=== PATIENT | female | born 1990 | race Asian ===

== ENCOUNTER 2024-09-17 11:16 | Outpatient (CLI) | payer BC, SELFPAY ==
--- NOTE | ~2024-09-17 | US_ITS ---
EXAMINATION: US OB <= 14 weeks fetus DATE: 09/17/2024 11:35 INDICATION: Viability. . TECHNIQUE: Real-time transabdominal pelvic ultrasound was performed. COMPARISON: None. FINDINGS: The uterus measures 15.7 x 6.8 x 8.8 cm. There is an intrauterine gestational sac. A yolk sac is iden tified. The crown rump length measures 3.4 cm, which correlates with an estimated gestational age of 10 weeks and 2 day(s) (+/-) 6 day(s). heart motion is identified measuring 169 beats per minute (bpm) by M-mode Doppler. There is a small subchronic hematoma. The right ovary is not visuali zed. The left ovary measures 7.4 x 4.3 x 7.7 cm. There is a 5.3 cm cyst in left ovary. There is no fr ee fluid in the pelvis. IMPRESSION: 1. Single living intrauterine gestation with estimated date of delivery of 05/10/2025. 2. Small subchronic hematoma. 3. 5.3 cm cyst in left ovary, likely a follicular cyst. Pelvis ultrasound is recommended in 6-12 josesito hs. Reviewed, dictated and finalized at location A. PING SUPPORT IMPRESSION: 1. Single living intrauterine gestation with estimated date of delivery of 04/13. 2. Small subchronic hematoma. 3. 5.3 cm cyst in left ovary, likely a follicular cyst. Pelvis ultrasound is re commended in 6-12 months.
== END 2024-09-17 11:17 | disposition home or self-care (01) ==
LOC: MICIMG 11:16
PROVIDERS: PCP Obstetrics & Gynecology Gynecology; Visit Provider Obstetrics & Gynecology Gynecology
DX: O36.80X0 Pregnancy with inconclusive fetal viability, not applicable or unspecified (principal)
CPT/HCPCS: 76801

== ENCOUNTER 2024-10-22 10:20 | Outpatient (CLI) | payer BC, SELFPAY ==
--- NOTE | ~2024-10-22 | US_ITS ---
EXAMINATION: US OB follow up DATE: 10/22/2024 11:03 INDICATION: Subchorionic hematoma. TECHNIQUE: Real-time ultrasound of the pelvis was performed. COMPARISON: Ultrasound 09/17/24 FINDINGS: There is a single living fetus in variable presentation. The placenta is posterior. heart rate is 161 beats per minute (bpm). The amniotic fluid volume is subjectively normal. IMPRESSION: 1. Single living fetus in variable presentation with estimated date of delivery of 05/10/2025 based o n the ultrasound from 09/17/2024. 2. No subchorionic hematoma. Reviewed, dictated and finalized at location A. ION SEWER IMPRESSION: 1. Single living fetus in variable presentation with estimated date of deliver y of 05/10/2025 based on the ultrasound from 09/17/2024. 2. No subchorionic hematoma.
== END 2024-10-22 10:21 | disposition home or self-care (01) ==
PROVIDERS: PCP Obstetrics & Gynecology Gynecology; Visit Provider Obstetrics & Gynecology Gynecology
DX: O36.63X0 Maternal care for excessive fetal growth, third trimester, not applicable or unspecified (principal); Z3A.00 Weeks of gestation of pregnancy not specified
CPT/HCPCS: 76816

== ENCOUNTER 2025-04-07 05:00 | Inpatient (IN) | payer BC, SELFPAY ==
[2025-04-07] VITALS (126 sets, daily range): BP systolic 70–154; BP diastolic 51–121; PULSE 59–139; RESP 16; TEMP 36.5–36.9; O2SAT 72–100
--- OUTSIDE RECORDS SUMMARY | 2025-04-07 07:10 | XMS_ITS | Clinical Summary ---
Author Organization [facility] Address [address] [place] [id number] Care Team Providers Care Roving Frame Tender Name Role Phone Unavailable Primary Care Provider Unavailabl e Allergies No known active allergies Medications drospirenone-ethiny l estradiol (OCELLA) 3-0.03 mg Oral tabletIndications:S urveillance for control, oral contraceptives Take 1 Tab by mouth daily. 28 Tab 12 2 Active Active Problems Problem Noted Date Diagnosed Date History of chlamydia 10/07/2012 Overview (10/07/2012): Personal history of tobacco use, presenting hazards to health 08/05/2012 Surveillance for control, oral contracepti ves 08/05/2012 Resolved Problems Problem Noted Date Diagnosed Date Resolved Date Chlamydia trachomatis infect ion of genitourinary site 08/11/2012 10/07/2012 Overview (08/11/2012): 07/2012 Well woman exam with routine gynecological exam 08/05/2012 10/07/2012 Family History Relation Name Status Comments Other ADOPTED Alive Social History Tobacco Use Types Packs/Day Years Used Date Smoking Tobacco: Every Day Cigarettes 0.3 5 Comments:6 cigarettes per da y Alcohol Use Standard Drinks/Week Comments Yes 0 (1 standard drink = 0.6 oz pur e alcohol) 6 per week Comments No Sex and Gender Information Value Date Recorded Sex Assigned at Not on file Legal Sex Female 6:11 AM DIRECTOR OF DISTANCE LEARNING Gender Identity Not on file Sexual Orientation Not on file Occupation Industry Job Start Date Job End Date Not on file Not on file Not on file Not on file Last Filed Vital Signs Vital Sign Reading Time Taken Comments Blood Pressure 110/53 10/07/2012 10:57 AM DIRECTOR OF DISTANCE LEARNING Pulse 84 10/07/2012 10:57 AM DIRECTOR OF DISTANCE LEARNING Temperature - - Respiratory Rate - - Oxygen Saturation - - Inhaled Oxygen Concentration - - Weight 57.5 kg (126 lb 12.8 oz) 012 10:57 AM DIRECTOR OF DISTANCE LEARNING Height 167.6 cm (5' 6) 10/07/2012 10:5 7 AM DIRECTOR OF DISTANCE LEARNING Body Mass Index 20.47 10/07/2012 10:57 AM DIRECTOR OF DISTANCE LEARNING Plan of Treatment Health Maintenance Due Date Last Done Comments DTAP/TDAP/TD VACCINES (1 - Tdap) 2010 HEPATITIS B VACCINES (1 of 3 - 19+ 3-dose series) 2010 HPV/Cotest (21-29) 2012 CERVICAL CANCER SCREENING 2021 HPV/Cotest (30-65) 2021 PAP SMEAR 2021 INFLUENZA VACCINE (#1) 2024 HPV VACCINES Aged Out No longer eligi ble based on patient's age to complete this topic Insurance [facility] [id number] [facility] Address[facility] [id number] [place] [address]
[2025-04-07 07:59] LABS: Basophils Absolute Auto 0.1 K/mm3 (0.0-0.1); Basophils Percent Auto 0.4 % (0.2-1.2); Eosinophils Absolute Auto 0.2 K/mm3 (0-0.3); Hematocrit 36.1 % (37.0-47.0); Hemoglobin 12.1 g/dL (12.0-15.0); Immature Granulocyte Absolute 0.17 K/mm3 (0.00-0.031); Lymphocytes Absolute Auto 1.25 K/mm3 (0.9-3.2); Lymphocytes Percent Auto 7.5 % (18.3-44.2); Mean Corpuscular HGB Conc 33.5 g/dl (32-36); Mean Corpuscular Hemoglobin 30.8 pg (26-34); Mean Corpuscular Volume 91.9 fl (80-100); Mean Platelet Volume 11.1 fl (7.4-10.4); Monocytes Absolute Auto 0.7 K/mm3 (0.1-0.6); Monocytes Percent Auto 4.5 % (2.6-8.5); Neutrophils Absolute Auto 14.2 K/mm3 (1.3-6.7); Neutrophils Percent Auto 85.6 % (45.5-73.1); Platelet Count Result 175 k/mm3 (150-375); Red Blood Count 3.93 M/mm3 (4.2-5.4); Red Cell Distribution Width 13.2 % (11.5-14.5); White Blood Count 16.6 K/mm3 (4.5-10.0)
--- NOTE | 2025-04-07 08:20 | PC.NURSE ---
Dr. Dorantes called RN, updated on patient admission, SVE /-2, ctx irregular, FHT reassuring, GBS negative. Orders received to start Pitocin per protocol, Dr. Dorantes to come to bedside to [facility].
[2025-04-07] MEDS: LACTATED RINGERS 1,000 ML 125 ML IV CONT ×2 (08:32→11:32)
[2025-04-07] MEDS: OXYTOCIN 30 UNITS/NS 500 ML 30 UNITS/500 ML BAG IV CONT (08:35)
--- NOTE | 2025-04-07 08:41 | PM.IMHP ---
H&P: HPI History of Present Illness Date/Time: 04/07/25 08:41 Chief Complaint: Contractions Narrative: 34 y/o at 39 1/7 weeks here with contractions since yesterday morning. Cervix has changed here on L&D from 2 to 4 cm. Was followed for a subchorionic hematoma which resolved. Rubella nonimmune. Uses an electronic cigarette. Otherwise, uncomplicated. GBS neg. Review of Systems Review of Systems: All systems reviewed & are unremarkable except as noted in HPI and below PMFSH Social History Social History Smoking status: Current some day smoker Tobacco type: e-cigarettes/vaping Smokeless tobacco user: other Substance use: never Do You Feel Safe in your Home?: Yes Lack of Transportation: No Lack of Food: Never True Current Housing: I Have Housing Concerned About Future Housing: No Difficulty Paying Gas/Electric Bills: No Difficulty Paying for Meds: No Currently Unemployed: No Education: Bachelor's Degree Difficulty w/ Childcare or Family Care: No Spiritual care concerns: No Meds Home Medications and Allergies Home Medications ?Medication ?Instructions ?Recorded ?Confirmed ?Type aspirin 81 mg capsule 81 mg PO DAILY 03/20/25 03/20/25 History cholecalciferol (vitamin D3) 25 1,000 unit PO DAILY 03/20/25 03/20/25 History mcg (1,000 unit) capsule ferrous sulfate 325 mg (65 mg 325 mg PO DAILY 03/20/25 03/20/25 History iron) tablet (iron) folic acid 400 mcg tablet 400 mcg PO DAILY 03/20/25 03/20/25 History vits no.130-ferrous fum 1 tablet PO DAILY 03/20/25 03/20/25 History 27 mg iron-folic acid 800 mcg tablet ( Vitamin) Allergies Allergy/AdvReac Type Severity Reaction Status Date / Time Penicillins Allergy Unknown Verified 03/20/25 14:27 Vital Signs Vital Signs - 24 hr 04/07/25 07:10 04/07/25 07:15 04/07/25 07:20 Temperature Pulse Rate Blood Pressure Pulse Oximetry 100 100 100 04/07/25 07:25 04/07/25 07:30 04/07/25 07:53 Temperature 36.8 C Pulse Rate 73 Blood Pressure 126/82 Pulse Oximetry 100 100 Exam Const: Orientation/consciousness: patient oriented x3 Other: Well-developed, well-nourished female in no acute distress. Neck: Thyroid: thyroid normal Lymphatic: no lymphadenopathy noted (in neck, axilla or inguinal nodes) Resp: Effort & Inspection: normal respiratory effort Auscultation: clear to auscultation bilaterally Cardio: Rate: regular rate Rhythm: regular rhythm Heart sounds: S1 normal heart sound present and S2 normal heart sound present GI: Other: ABD: Soft, nontender, nondistended, gravid. NST reactive. TOCO: irregular contractions. No guarding or rebound tenderness. No hepatosplenomegaly. : General: Yes no CVA tenderness Other: Cervix 4/80/-2. Small bloody show. AROM with return of blood-tinged fluid. Vertex. Back/Spine/Pelvis: Back: no CVA tenderness Skin: General skin exam: normal color and no rashes or lesions noted Neuro: General: patient oriented x3 Extrem: Other: Extremities: nontender with no edema Psych: Mental Status: mental status grossly normal Affect: normal affect H&P: Results Labs Labs: Short CBC 04/07/25 Range/Units 07:52 WBC 16.6 H (4.5-10.0) K/mm3 Hgb 12.1 (12.0-15.0) g/dL Hct 36.1 L (37.0-47.0) % Plt Count 175 (150-375) k/mm3 Assessment and Plan Assessment and plan (1) Term : Code(s): Z34.90 - Encounter for supervision of normal , unspecified, unspecified trimester Status: Acute Assessment and Plan: A: IUP at 39 1/7 weeks with labor. P: Augment labor as needed. Anticipate . (2) Active labor at term: Status: Acute
[2025-04-07 08:50] LABS: HIV 1/2 Ab P24 Ag Result Negative (Negative)
[2025-04-07 08:56] LABS: Syphilis IgG/IgM Antibody Negative (Negative)
--- NOTE | 2025-04-07 13:29 | PM.OBPNLAB ---
Pain Control Date/time seen: 04/07/25 13:29 Comments: Comfortable with epidural. Pelvic Exam Dilation (cm): 7 Effacement (%): 90 station: 0 Contractions Contraction frequency: 4 Contraction pattern: Regular Status status: Category l (130) Assessment and Plan Pitocin rate (mU/min): 0 Comments: IUPC placed. Augment labor as needed. Anticipate .
--- NOTE | 2025-04-07 15:48 | S_PTH ---
PATIENT: Julita Buchanan LOC: [facility] U#:[id number] AGE/SX: 34/F ROOM: 279 RE04/07/[address]: Callum Dorantes MD : [id number] BED: 00 DIS: 04/09/2025 SPEC #: [id number] RECD: 04/08/25 07:10 STATUS: SARA REQ #: [id number] CECY: 04/07/25 15:[address]: Callum Dorantes DEPT: [facility] Surgical RECD BY: Monik Cid ENTERED: 04/08/25 07:10 SP TYPE: Surgical OTHR DR: Donita Draper MD STEEL POST INSTALLER SUPERVISOR PHYSICIAN Tissues: A - Placenta Procedures: Hematoxylin and Eosin Stain Gross and Microscopic Level 5
--- NOTE | 2025-04-07 15:59 | PM.OBPRVD ---
OB - Vaginal Delivery Note Procedure Delivery date: 04/07/25 Induction method: None Delivery augmentation: Rupture of Membranes and Pitocin Delivery monitor: External FHT, External Uterine and Internal Uterine Route of delivery: Laceration Description: Periurethral Delivery repair: vicryl (3-0) Specimen: Yes (cord blood, placenta) Quantitative Blood Loss (ml): 80 Anesthesia type: Epidural Disposition: PACU Complications: None Narrative: 34 y/o at 39 1/7 weeks gestation who presented to the hospital with contractions. Labor was diagnosed. Amniotomy with blood tinged fluid. Oxytocin was administered intravenously for labor augmentation. She received an epidural for pain control. Her labor progressed and her cervix dilated completely. She pushed with good effort and delivered the infant's head to the perineum. A loose nuchal cord was splinted and the body delivered with a gush of bloody fluid. The cord was reduced and the nose and mouth were bulb suctioned. After a delay, the cord was clamped and cut. The was handed off the field. Cord blood was collected. The placenta delivered piecemeal. The uterus was explored manually and found to be empty. Transabdominal bedside ultrasound exam showed an empty uterus. The usual 3 vessel cord was noted. Bilateral periurethral lacerations were reapproximated using 3 0 Vicryl in the usual figure of eight fashion. Excellent hemostasis resulted as did excellent reapproximation of the normal anatomy. Needle and instrument counts were correct. The patient was taken to recovery room in stable condition. The went to the nursery in stable condition. I was present and scrubbed for the entire delivery. [place] Baby Date of : 04/07/25 Time of : 15:35 Gestational Age by Date: 39 Infant gender: Male Weight (pounds): 5 Weight (ounces): 15 presentation: vertex position: Left Occiput Anterior Placenta delivery description: Manual Removal Cord Vessel Description: 3 Vessels, Nuchal Cord and Delayed Cord Clamping
--- NOTE | 2025-04-07 16:09 | PM.OBDSVD ---
DS: Admitting Diagnosis Discharge Date 04/09/25 Admitting Diagnosis IUP at 39 1/7 weeks Labor DS: Discharge Diagnosis Discharge Diagnosis (1) (normal spontaneous vaginal delivery): Code(s): O80 - Encounter for full-term uncomplicated delivery Status: Acute OB - DS: Summary OB Procedures : None OB Procedures Intrapartum: Spontaneous Vag Delivery, Uterine exploration and Other (Bedside ultrasound) OB Procedures: : None Peripartum Data Laceration Description: Periurethral Time Spent with Patient Time attestation: Total time spent providing and/or coordinating discharge services: DS: Data Data Completed and Pending Pending studies at discharge: Pending at discharge 04/07/25 15:48 Surgical [PTH] Routine Labs on day of discharge: Labs from last 24 hours 04/07/25 07:52 WBC 16.6 H RBC 3.93 L Hgb 12.1 Hct 36.1 L MCV 91.9 MCH 30.8 MCHC 33.5 RDW 13.2 Plt Count 175 MPV 11.1 H Immature Gran % (Auto) 1.0 H Neut % (Auto) 85.6 H Lymph % (Auto) 7.5 L Peach % (Auto) 4.5 Eos % (Auto) 1.0 Baso % (Auto) 0.4 Lymph # (Auto) 1.25 Peach # (Auto) 0.7 H Eos # (Auto) 0.2 Baso # (Auto) 0.1 Abs Immat Gran (auto) 0.17 H Absolute Neuts (auto) 14.2 H Absolute Nucleated RBC 0.000 Nucleated RBC % 0.0 Syphilis IgG/IgM Ab Negative HIV 1&2 Ab/P24 Ag 4thGn Negative Blood Type A Positive Antibody Screen Negative Discharge Plan Discharge Attending physician on discharge: Donita Draper Discharging Clinician: Callum Dorantes Patient Disposition: Home Activity: pelvic rest Diet: regular Discharge Instructions: Call or return if temperature above 100.4? F, increased abdominal pain, increased vaginal bleeding or any new problems. Patient Language: Thai Stand Alone Forms: General Discharge Information Follow-up/Referrals: Donita Draper MD [Physician] - 6 Weeks Discharge Medications: New ibuprofen 600 mg tablet 600 mg PO Q6H PRN (Reason: cramps) Qty: 30 0RF Continued Vitamin 27 mg iron- 800 mcg tablet 1 tablet PO DAILY ferrous sulfate [iron] 325 mg (65 mg iron) tablet 325 mg PO DAILY cholecalciferol (vitamin D3) 25 mcg (1,000 unit) capsule 1,000 unit PO DAILY Discontinued aspirin 81 mg capsule 81 mg PO DAILY folic acid 400 mcg tablet 400 mcg PO DAILY Date of admission: 04/07/25 05:00 Primary Care Provider: PHYSICIAN,LIABILITY CLAIMS EXAMINER Admitting Provider: Donita Draper Attending physician on admission: Donita Draper Condition: Stable
[2025-04-07] MEDS: ceFAZolin 2 GM/D5W 50 ML 2 GM/50 ML BAG IVPB (16:20)
[2025-04-07] MEDS: OXYTOCIN 30 UNITS/NS 500 ML 30 UNITS/500 ML BAG 125 UNITS IV CONT (16:21)
--- NOTE | 2025-04-07 18:11 | OBPPTRN ---
Patient transferred to post room #279 via wheelchair. Support person-spouse- present. Oriented to unit, room, information board, rooming in, admission packet and security measures. Patient verbalizes understanding.
[2025-04-08 03:45] VITALS: BP 112/67; PULSE 81; RESP 16; TEMP 36.6; O2SAT 98
[2025-04-08 05:19] LABS: Hematocrit 30.9 % (37.0-47.0); Hemoglobin 10.3 g/dL (12.0-15.0)
[2025-04-08 07:55] VITALS: BP 129/75; PULSE 78; RESP 16; TEMP 37.1; O2SAT 98
--- NOTE | 2025-04-08 10:22 | PC.NURSE ---
Consulted with patient to assess needs related to . Discussed with mother her successes, concerns and any questions she has. Per mother baby was having trouble latching last night and maintaining, he did have to have 2 glucose gels and supplemented with formula due to low glucose checks. We reviewed working with the infant, supporting breast, protecting her nipples with an optimal deep latch, good positioning, and good hand washing. Encouraged understanding the benefits of skin to skin, responding to feeding cues, frequencies of feeding 8-12 times in 24 hours (approximately 2-3 hours), duration of feedings, milk production, intake/output feeding sheet and signs of adequate intake encouraging swallowing at the breast. CLC at bedside, mother attempted to latch baby on her right breast in cradle and then cross cradle, baby was upset and would not latch. Mother put baby skin to skin and then was able to latch baby to her left breast in football hold @ 1030, mother hand expressed before latching and had a lot of colostrum, CLC helped with positioning and baby was able to maintain his latch without any pain to mother. We reviewed positioning and alignment, supporting breast, off-centered (asymmetrical latch) and leading with the chin with big, open, wide gape. Infant latched optimally to the [right] breast in [football] position. Education given to the mother of how to visualize the suckling (with good rocking jaw motion) swallows (dropping of the lower jaw) and how to listen for drinking at the breast (the ka sound). The infant was [able] to maintain latch without discomfort to mother. Nipple care reviewed with optimal latch, good positioning and using clean hands when touching her breast. Resources used to facilitate learning were used from the [visual handouts/ tool/mom and baby guide]. Mother voiced understanding of the education shared, to call for assistance if the does not latch or if there is discomfort with . Reported to the Primary RN.
[2025-04-08 12:20] VITALS: BP 109/57; PULSE 80; RESP 16; TEMP 37.3; O2SAT 100
--- NOTE | 2025-04-08 12:50 | P.PNOB_ITS ---
OB - PN: Subj Subjective Date/time seen: 04/08/25 12:50 Narrative: Pain OK. Would like circumcision for son. OB - PN: Obj Data Labs 04/08/25 03:49 Labs: Laboratory Results - last 24 hr 04/08/25 03:49 Hgb 10.3 L Hct 30.9 L OB - PN A/P Plan day: 1 Comments: A: PPD#1, doing well. P: Reviewed circ. Routine care. Exam 2 Psych: Other: AVSS ABD soft, nontender, fundus firm EXT nontender
--- NOTE | 2025-04-08 14:52 | WPDANLDPN2 ---
Anes-Prog Note L&D Date/Time: 04/08/25 14:52 Neuro status: Neuro function grossly intact. Cardiovascular status: normal Respiratory status: normal Airway patency: baseline Mental status: baseline Vital Signs: Last Vital Signs Temp 37.3 C 04/08/25 12:20 Pulse 80 04/08/25 12:20 Resp 16 04/08/25 12:20 BP 109/57 L 04/08/25 12:20 Pulse Ox 100 04/08/25 12:20 O2 Del Method Room Air 04/08/25 07:00 Pain score (VAS): 0 I/O: Intake & Output 04/07/25 04/08/25 04/08/25 23:59 07:59 15:59 Intake Total 1000 Balance 1000 Patient feedback: Patient satisfied with anesthetic care.
[2025-04-08] MEDS: WITCH HAZEL 40 PADS 1 PAD TOPICAL (17:36)
[2025-04-08] MEDS: DOCUSATE SODIUM 100 MG CAPSULE PO (17:36)
[2025-04-08] MEDS: LANOLIN (LANSINOH) 7.5 GM CREAM 1 APPLIC TOPICAL (17:36)
[2025-04-08 19:40] VITALS: BP 124/72; PULSE 65; RESP 16; TEMP 36.3; O2SAT 100
[2025-04-09 08:00] VITALS: BP 127/80; PULSE 69; RESP 18; TEMP 36.9; O2SAT 100
--- NOTE | 2025-04-09 08:57 | P.PNOB_ITS ---
OB - PN: Subj Subjective Date/time seen: 04/09/25 08:57 Narrative: Pain OK. Would like to go home. OB - PN: Obj Data Labs 04/08/25 03:49 OB - PN A/P Plan day: 2 Comments: A: PPD#2, doing well. P: Home to f/u 6 weeks. Exam 2 Psych: Other: AVSS ABD soft, nontender, fundus firm EXT nontender
--- NOTE | 2025-04-09 09:10 | PC.NURSE ---
Consulted with mother concerning needs and she shared her ability to independently latch infant optimally without pain. Per mother she did give a few formula bottles last night but did breastfeed this morning, RN advised mother to use her breast pump if baby does not feed at the breast to protect her milk supply. RN measured mother's nipples and both were 19mm, she has a Spectra breast pump. She will be going home this afternoon. Mother is feeding appropriately for growth of and understands stimulating to eat if needed. Infant has had appropriate feedings in the last 24 hours meets the outcomes for weight, output, blood sugar and jaundice at this time. Reinforced understanding of milk production, transition of milk, signs of adequate intake, transition of stool, prevention/relief of engorgement, plugged ducts, mastitis, responsive watching for feeding cues, the different methods of stimulating infant to breastfeed 1-3 hours after the start of the last feeding, community resources, and when to call a provider using the resource of the feeding sheet along with the mom and baby guide. Mother voiced understanding of the information shared, is confident to continue effectively her infant at home, when to call for assistance, denies any additional assistance or education at this time. Reported to the Primary RN.
[2025-04-09] MEDS: MULTIVIT/MIN/PREN/FOL AC/IRON TABLET 1 TAB PO (09:43)
[2025-04-09] MEDS: DOCUSATE SODIUM 100 MG CAPSULE PO (09:43)
[2025-04-09] MEDS: MEASLES,MUMPS,RUBELLA VACCINE 0.5 ML VIAL SUB-Q (11:36)
[2025-04-10 09:17] VITALS: BP 104/63; PULSE 66; RESP 18; TEMP 36.8; O2SAT 100
== END 2025-04-09 12:25 | disposition home or self-care (01) | DRG 807 ==
LOC: ANHLDR 04-12 07:40 → ANHOB2 04-12 07:40
PROVIDERS: Admitting Provider Obstetrics & Gynecology; Visit Provider Obstetrics & Gynecology
DX: O69.81X0 Labor and delivery complicated by cord around neck, without compression, not applicable or unspecified (principal); Z37.0 Single live birth; O71.82 Other specified trauma to perineum and vulva; O99.334 Smoking (tobacco) complicating childbirth; F17.290 Nicotine dependence, other tobacco product, uncomplicated; Z3A.39 39 weeks gestation of pregnancy
CPT/HCPCS: 36415; 85014; 85018; 85025; 86593; 86703; 86850; 86900; 86901; 88307; 90710; A9270; G0432; J0690; J2590; J2795; J7120